=== PATIENT | female | born 1980 | race African-American/Black ===

== ENCOUNTER 2018-08-15 07:46 | Day surgery (SDC) | payer OTHER ==
[2018-08-15] MEDS: SOD CHLORIDE 0.9% 1,000 ML IV (06:00)
[~2018-08-15 07:46] MED LIST: CEFAZOLIN 2 GM/50 ML (PMX) 50 ML IVPB
[2018-08-15] MEDS ORDERED: EPHEDrine SULFATE 50 MG/5 ML SYG (09:00)
[2018-08-15] MEDS ORDERED: CEFAZOLIN 1 GM INJ (09:00)
[2018-08-15] MEDS ORDERED: MIDAZOLAM 1 MG/ML 2 ML INJ (09:10)
[2018-08-15] MEDS ORDERED: LIDOCAINE 2% (SDV) 5 ML INJ (09:10)
[2018-08-15] MEDS ORDERED: PROPOFOL 20 ML ×2 (09:10→10:49)
[2018-08-15] MEDS ORDERED: DEXAMETHASONE 4 MG/ML 5 ML INJ (09:10)
[2018-08-15] MEDS ORDERED: ONDANSETRON 4 MG INJ (09:10)
[2018-08-15] MEDS ORDERED: ONDANSETRON 4 MG INJ IV ×3 (10:00→12:00)
[2018-08-15] MEDS ORDERED: LABETALOL HCL 20MG INJ IV (10:00)
[2018-08-15] MEDS ORDERED: OXYCODONE/ACETAMINOPHEN (5/325) TAB PO ×3 (10:00)
[2018-08-15] MEDS ORDERED: FENTAnyl 50 MCG/ML VIAL IV ×3 (10:00)
[2018-08-15] MEDS ORDERED: MEPERIDINE 25 MG INJ IV ×2 (10:00)
[2018-08-15] MEDS: LIDOCAINE 1%/EPI 30 ML INJ (10:32)
[2018-08-15] MEDS: BUPIVACAINE 0.25%/EPI (SDV) 30 ML INJ (10:32)
[2018-08-15] MEDS ORDERED: KETOROLAC 30 MG INJ (10:53)
[2018-08-15] MEDS ORDERED: LACTATED RINGER'S 1,000 ML IV (11:43)
[2018-08-15] MEDS ORDERED: morphine 2 MG INJ IV (12:00)
[2018-08-15] MEDS ORDERED: HYDROCODONE/APAP (5/325) TAB PO (12:00)
[2018-08-15] MEDS: FENTAnyl 50 MCG/ML VIAL IV (12:08)
[2018-08-15] MEDS: OXYCODONE/ACETAMINOPHEN (5/325) TAB PO (12:22)
== END 2018-08-15 13:16 | disposition home or self-care (01) ==
LOC: SDS 07:46
DX: D17.21 Benign lipomatous neoplasm of skin and subcutaneous tissue of right arm (principal); J45.909 Unspecified asthma, uncomplicated
CPT/HCPCS: 14000; 88307